=== PATIENT | male | born 1945 | race Caucasian/White ===

== ENCOUNTER 2017-11-20 11:30 | Outpatient (CLI) | payer OTHER | END 2017-11-20 11:36 | disposition home or self-care (01) | LOC: RAD 11:30 | DX: M25.512 Pain in left shoulder (principal) ==

== ENCOUNTER → 2018-03-25 | Outpatient (CLI) | payer OTHER ==
[~2018-03-25] MED LIST: IRON236 MG PO; LISINOPRIL10 MG PO; METFORMIN HCL500 MG PO; SIMVASTATIN40 MG PO
== END | disposition home or self-care (01) ==
LOC: NUCLEAR 03-19 08:30
DX: D49.0 Neoplasm of unspecified behavior of digestive system (principal); R91.1 Solitary pulmonary nodule
CPT/HCPCS: 78815; A9552

== ENCOUNTER 2018-04-03 14:38 | Inpatient (IN) | payer OTHER ==
[~2018-04-03] VITALS: Ht 167.6 cm; Wt 81.6 kg
[2018-04-03] MEDS ORDERED: LISINOPRIL10 MG PO (15:30)
[2018-04-03] MEDS ORDERED: IRON236 MG PO (15:30)
[2018-04-03] MEDS ORDERED: SIMVASTATIN40 MG PO (15:30)
[2018-04-03] MEDS ORDERED: METFORMIN HCL500 MG PO (15:30)
== END 2018-04-14 16:08 | disposition home or self-care, planned readmission (81) | DRG 330 ==
LOC: O/R 04-08 06:00 → SURG 04-08 11:05 → O/R 04-08 14:37 → SURG 04-14 07:34
PROVIDERS: Surgery
PROC: 07TC4ZZ Resection of Pelvis Lymphatic, Percutaneous Endoscopic Approach (ICD-10-PCS; 2018-04-08)
PROC: 0DTF4ZZ Resection of Right Large Intestine, Percutaneous Endoscopic Approach (ICD-10-PCS; principal; 2018-04-08 11:00)
PROC: 3E0F7GC Introduction of Other Therapeutic Substance into Respiratory Tract, Via Natural or Artificial Opening (ICD-10-PCS; 2018-04-09)
DX: C18.2 Malignant neoplasm of ascending colon (principal); J95.89 Other postprocedural complications and disorders of respiratory system, not elsewhere classified; J98.11 Atelectasis; R59.0 Localized enlarged lymph nodes; D12.2 Benign neoplasm of ascending colon; R06.02 Shortness of breath

== ENCOUNTER 2018-04-07 08:09 | Day surgery (SDC) | payer OTHER | END 2018-04-07 11:50 | disposition home or self-care, planned readmission (81) | LOC: AMB-ENDOS 08:09 | DX: D12.2 Benign neoplasm of ascending colon (principal) ==

== ENCOUNTER 2019-03-31 12:12 | Outpatient (CLI) | payer OTHER | END 2019-03-31 15:50 | disposition home or self-care (01) | LOC: LAB 12:12 | DX: N20.0 Calculus of kidney (principal) ==

== ENCOUNTER 2019-04-14 07:37 | Outpatient (CLI) | payer OTHER | END 2019-04-14 07:45 | disposition home or self-care (01) | LOC: TOM 07:37 | DX: C18.2 Malignant neoplasm of ascending colon (principal) | CPT/HCPCS: 71260; 74177; Q9965 ==

== ENCOUNTER 2019-04-27 08:17 | Day surgery (SDC) | payer OTHER | END 2019-04-27 12:00 | disposition home or self-care (01) | LOC: AMB-ENDOS 08:17 | DX: D12.3 Benign neoplasm of transverse colon (principal) ==

== ENCOUNTER 2019-09-08 09:42 | Outpatient (CLI) | payer OTHER | END 2019-09-08 15:00 | disposition home or self-care (01) | LOC: LAB 09:42 | DX: I11.9 Hypertensive heart disease without heart failure (principal); E11.9 Type 2 diabetes mellitus without complications; E78.49 Other hyperlipidemia ==

== ENCOUNTER 2019-09-09 09:04 | Outpatient (CLI) | payer OTHER | END 2019-09-09 15:00 | disposition home or self-care (01) | LOC: LAB 09:04 | DX: I11.9 Hypertensive heart disease without heart failure (principal); E11.9 Type 2 diabetes mellitus without complications; E78.49 Other hyperlipidemia ==

== ENCOUNTER → 2020-04-28 09:52 | Outpatient (CLI) | payer OTHER | END | disposition home or self-care (01) | LOC: LAB 09:52 | PROVIDERS: ATTEND Radiology Diagnostic Radiology | DX: N20.0 Calculus of kidney (principal) ==

== ENCOUNTER 2020-05-06 09:14 | Outpatient (CLI) | payer OTHER | END 2020-05-06 09:22 | disposition home or self-care (01) | LOC: TOM 09:14 → EDBD 09:15 → TOM 09:15 | PROVIDERS: ATTEND Internal Medicine | DX: C18.2 Malignant neoplasm of ascending colon (principal) | CPT/HCPCS: 71260; 74177; Q9965 ==

== ENCOUNTER 2021-01-02 09:24 | Outpatient (CLI) | payer OTHER | END 2021-01-02 09:33 | disposition home or self-care (01) | LOC: LAB 09:24 → RAD 09:24 → LAB 09:33 | DX: I11.9 Hypertensive heart disease without heart failure (principal); R97.0 Elevated carcinoembryonic antigen [CEA]; D12.6 Benign neoplasm of colon, unspecified; E11.65 Type 2 diabetes mellitus with hyperglycemia; E11.69 Type 2 diabetes mellitus with other specified complication; D50.8 Other iron deficiency anemias; N40.1 Benign prostatic hyperplasia with lower urinary tract symptoms; Z12.11 Encounter for screening for malignant neoplasm of colon; Z12.5 Encounter for screening for malignant neoplasm of prostate ==

== ENCOUNTER 2021-01-04 09:51 | Outpatient (CLI) | payer OTHER | END 2021-01-04 09:56 | disposition home or self-care (01) | LOC: LAB 09:51 | DX: N40.1 Benign prostatic hyperplasia with lower urinary tract symptoms (principal); Z12.11 Encounter for screening for malignant neoplasm of colon; Z12.5 Encounter for screening for malignant neoplasm of prostate; D50.8 Other iron deficiency anemias; E11.69 Type 2 diabetes mellitus with other specified complication; E11.65 Type 2 diabetes mellitus with hyperglycemia; D12.6 Benign neoplasm of colon, unspecified; R97.0 Elevated carcinoembryonic antigen [CEA] ==

== ENCOUNTER 2021-02-06 09:29 | Outpatient (CLI) | payer OTHER | END 2021-02-06 09:40 | disposition home or self-care (01) | LOC: TOM 09:29 | DX: R97.0 Elevated carcinoembryonic antigen [CEA] (principal); Z85.038 Personal history of other malignant neoplasm of large intestine ==

== ENCOUNTER 2021-10-04 15:26 | Outpatient (CLI) | payer OTHER | END 2021-10-04 18:00 | disposition home or self-care (01) | LOC: EKG 15:26 | DX: I10 Essential (primary) hypertension (principal) ==

== ENCOUNTER 2022-03-01 09:15 | Outpatient (CLI) | payer OTHER | END 2022-03-01 09:31 | disposition home or self-care (01) | LOC: LAB 09:15 | DX: E11.69 Type 2 diabetes mellitus with other specified complication (principal); E11.65 Type 2 diabetes mellitus with hyperglycemia; D50.9 Iron deficiency anemia, unspecified; N40.1 Benign prostatic hyperplasia with lower urinary tract symptoms; N13.8 Other obstructive and reflux uropathy; Z85.038 Personal history of other malignant neoplasm of large intestine; R97.0 Elevated carcinoembryonic antigen [CEA]; I11.9 Hypertensive heart disease without heart failure ==

== ENCOUNTER → 2022-03-06 09:38 | Outpatient (CLI) | payer OTHER | END | disposition home or self-care (01) | LOC: LAB 09:38 | DX: E11.69 Type 2 diabetes mellitus with other specified complication (principal); E11.65 Type 2 diabetes mellitus with hyperglycemia; R97.0 Elevated carcinoembryonic antigen [CEA]; I11.9 Hypertensive heart disease without heart failure; D50.9 Iron deficiency anemia, unspecified; N40.1 Benign prostatic hyperplasia with lower urinary tract symptoms; N13.8 Other obstructive and reflux uropathy; Z85.038 Personal history of other malignant neoplasm of large intestine ==

== ENCOUNTER 2022-04-02 10:21 | Outpatient (CLI) | payer OTHER | END 2022-04-02 10:23 | disposition home or self-care (01) | LOC: TOM 10:21 | PROVIDERS: ATTEND Internal Medicine | DX: C18.2 Malignant neoplasm of ascending colon (principal) | CPT/HCPCS: 71270; Q9965 ==

== ENCOUNTER 2022-09-10 10:17 | Outpatient (CLI) | payer OTHER | END 2022-09-10 10:31 | disposition home or self-care (01) | LOC: LAB 10:17 | DX: Z12.5 Encounter for screening for malignant neoplasm of prostate (principal); I13.0 Hypertensive heart and chronic kidney disease with heart failure and stage 1 through stage 4 chronic kidney disease, or unspecified chronic kidney disease; Z13.29 Encounter for screening for other suspected endocrine disorder; E55.9 Vitamin D deficiency, unspecified; E78.5 Hyperlipidemia, unspecified ==

== ENCOUNTER 2023-06-03 08:04 | Outpatient (CLI) | payer OTHER | END 2023-06-03 08:08 | disposition home or self-care (01) | LOC: TOM 08:04 | DX: C18.2 Malignant neoplasm of ascending colon (principal) | CPT/HCPCS: 71270; 74178; Q9965 ==

== ENCOUNTER 2024-05-12 08:31 | Outpatient (CLI) | payer OTHER ==
[2024-05-12 09:44] LABS: HEMATOCRIT 34.2 % (39.0-48.0); HEMOGLOBIN 12.2 g/dL (13-16.00); MEAN CELL VOLUME 90.2 fL (80.0-100.00); MEAN CORPUSCULAR HEMOGLOBIN 32.1 pg (27.00-32.0); MEAN CORPUSCULAR HGB CONC 35.6 g/dl (32.0-36.0); PLATELET COUNT 200 K/uL (150-450); RED BLOOD COUNT 3.79 M/uL (4.00-6.00)
[2024-05-12 09:46] LABS: PH,URINE 5.5 (5.0-8.0); URINE APPEARANCE Clear; URINE BILIRRUBIN Negative (NEGATIVE); URINE BLOOD Trace; URINE COLOR Yellow; URINE GLUCOSE Negative (NEGATIVE); URINE KETONE Negative (NEGATIVE); URINE LEUKOCYTE Negative; URINE NITRATE Negative; URINE PROTEIN Negative (NEGATIVE); URINE UROBILINOGEN 0.2 E.U./dl
[2024-05-12 09:51] LABS: URINE BACTERIA 7.5 uL (0.0-1933); URINE RBC 12.2 uL (0.0-20.8)
[2024-05-12 09:59] LABS: URINE EPITHELIAL CELLS 0.4 uL (0.0-38.8); URINE WBC 0.5 uL (0.0-23.2)
[2024-05-12 10:43] LABS: ALBUMIN 3.7 gm/dL (3.4-5.0); CALCIUM 8.9 mg/dL (8.5-10.1); CHOL HDL RATIO 2.3 (0-5.0); CREATININE SERUM 1.3 mg/dL (0.70-1.30); GFR 53.53; PHOSPHOROUS 3.9 mg/dL (2.5-4.9); POTASSIUM 4.56 mEq/L (3.5-5.1); URIC ACID 8.4 mg/dL (3.5-8.5)
== END 2024-05-12 08:37 | disposition home or self-care (01) ==
LOC: LAB 08:31
PROVIDERS: ATTEND Internal Medicine Nephrology
DX: D64.9 Anemia, unspecified (principal); I10 Essential (primary) hypertension; E78.2 Mixed hyperlipidemia; R80.8 Other proteinuria; E11.21 Type 2 diabetes mellitus with diabetic nephropathy; E79.0 Hyperuricemia without signs of inflammatory arthritis and tophaceous disease; R31.1 Benign essential microscopic hematuria

== ENCOUNTER → 2024-07-16 07:44 | Outpatient (CLI) | payer OTHER ==
[2024-07-16 08:44] LABS: HEMATOCRIT 33.4 % (39.0-48.0); HEMOGLOBIN 11.9 g/dL (13-16.00); MEAN CELL VOLUME 89.5 fL (80.0-100.00); MEAN CORPUSCULAR HGB CONC 35.8 g/dl (32.0-36.0); PLATELET COUNT 191 K/uL (150-450); RED BLOOD COUNT 3.73 M/uL (4.00-6.00); RED CELL DISTRIBUTION WIDTH 13.9 % (11.5-14.5)
[2024-07-16 09:09] LABS: ALBUMIN 3.7 gm/dL (3.4-5.0); BILIRUBIN TOTAL 0.56 mg/dL (0.3-1.2); CALCIUM 9.2 mg/dL (8.5-10.1); CREATININE SERUM 1.4 mg/dL (0.70-1.30); GFR 49.14; GLOBULINA 3.7 G/DL (2.4-3.5); POTASSIUM 4.8 mEq/L (3.5-5.1); TOTAL PROTEIN 7.4 gm/dL (6.4-8.2)
== END | disposition home or self-care (01) ==
LOC: LAB 07:44
PROVIDERS: ATTEND Internal Medicine
DX: C18.2 Malignant neoplasm of ascending colon (principal)

== ENCOUNTER 2024-08-03 08:37 | Outpatient (CLI) | payer OTHER | END 2024-08-03 08:46 | disposition home or self-care (01) | LOC: TOM 08:37 | PROVIDERS: ATTEND Internal Medicine | DX: C18.2 Malignant neoplasm of ascending colon (principal) ==

== ENCOUNTER → 2024-11-10 07:52 | Outpatient (CLI) | payer OTHER ==
[2024-11-10 08:41] LABS: PH,URINE 6.5 (5.0-8.0); URINE APPEARANCE Clear; URINE BILIRRUBIN Negative (NEGATIVE); URINE BLOOD Negative; URINE COLOR Yellow; URINE GLUCOSE Negative (NEGATIVE); URINE KETONE Negative (NEGATIVE); URINE LEUKOCYTE Negative; URINE NITRATE Negative; URINE PROTEIN 30 (NEGATIVE); URINE UROBILINOGEN 0.2 E.U./dl
[2024-11-10 08:47] LABS: HEMATOCRIT 35.9 % (39.0-48.0); HEMOGLOBIN 12.5 g/dL (13-16.00); MEAN CORPUSCULAR HEMOGLOBIN 31.4 pg (27.00-32.0); MEAN CORPUSCULAR HGB CONC 34.9 g/dl (32.0-36.0); PLATELET COUNT 213 K/uL (150-450); RED BLOOD COUNT 3.99 M/uL (4.00-6.00)
[2024-11-10 08:58] LABS: URINE BACTERIA 3.6 uL (0.0-1933); URINE CAST 0.73 uL (0.0-1.40); URINE EPITHELIAL CELLS 0.4 uL (0.0-38.8); URINE WBC 0.9 uL (0.0-23.2)
[2024-11-10 09:17] LABS: ALBUMIN 3.9 gm/dL (3.4-5.0); CALCIUM 9.2 mg/dL (8.5-10.1); CHOL HDL RATIO 2.7 (0-5.0); CREATININE SERUM 1.56 mg/dL (0.70-1.30); GFR 43.37; PHOSPHOROUS 3.7 mg/dL (2.5-4.9); POTASSIUM 4.69 mEq/L (3.5-5.1)
== END | disposition home or self-care (01) ==
LOC: RAD 07:52 → LAB 07:52
PROVIDERS: ATTEND Internal Medicine Nephrology
DX: D64.9 Anemia, unspecified (principal); I10 Essential (primary) hypertension; E78.2 Mixed hyperlipidemia; R80.8 Other proteinuria; R31.1 Benign essential microscopic hematuria; E11.21 Type 2 diabetes mellitus with diabetic nephropathy; E79.0 Hyperuricemia without signs of inflammatory arthritis and tophaceous disease

== ENCOUNTER → 2024-11-17 06:55 | Outpatient (CLI) | payer OTHER ==
[2024-11-17 08:00] LABS: HEMATOCRIT 35.5 % (39.0-48.0); HEMOGLOBIN 12.5 g/dL (13-16.00); MEAN CELL VOLUME 90.1 fL (80.0-100.00); MEAN CORPUSCULAR HEMOGLOBIN 31.7 pg (27.00-32.0); MEAN CORPUSCULAR HGB CONC 35.2 g/dl (32.0-36.0); PLATELET COUNT 218 K/uL (150-450); RED BLOOD COUNT 3.94 M/uL (4.00-6.00); RED CELL DISTRIBUTION WIDTH 13.8 % (11.5-14.5)
[2024-11-17 08:01] LABS: PH,URINE 7.5 (5.0-8.0); URINE APPEARANCE Clear; URINE BILIRRUBIN Negative (NEGATIVE); URINE BLOOD Negative; URINE COLOR Yellow; URINE GLUCOSE Negative (NEGATIVE); URINE KETONE Negative (NEGATIVE); URINE LEUKOCYTE Negative; URINE NITRATE Negative; URINE PROTEIN Negative (NEGATIVE); URINE UROBILINOGEN 0.2 E.U./dl
[2024-11-17 08:09] LABS: URINE BACTERIA 9.7 uL (0.0-1933); URINE EPITHELIAL CELLS 1.4 uL (0.0-38.8); URINE RBC 13.3 uL (0.0-20.8)
[2024-11-17 08:12] LABS: URINE WBC 0.4 uL (0.0-23.2)
[2024-11-17 09:05] LABS: ALBUMIN 3.7 gm/dL (3.4-5.0); BILIRUBIN TOTAL 0.44 mg/dL (0.3-1.2); CALCIUM 9.2 mg/dL (8.5-10.1); CHOL HDL RATIO 3.2 (0-5.0); CREATININE SERUM 1.38 mg/dL (0.70-1.30); GFR 49.96; GLOBULINA 3.9 G/DL (2.4-3.5); POTASSIUM 4.31 mEq/L (3.5-5.1); T4 FREE 0.94 NG/ML (0.76-1.46); TOTAL PROTEIN 7.6 gm/dL (6.4-8.2); TSH 2.56 uIU/mL (0.358-3.74)
== END | disposition home or self-care (01) ==
LOC: LAB 06:55
DX: E03.9 Hypothyroidism, unspecified (principal); E78.49 Other hyperlipidemia; E11.65 Type 2 diabetes mellitus with hyperglycemia; I11.9 Hypertensive heart disease without heart failure; E11.22 Type 2 diabetes mellitus with diabetic chronic kidney disease; Z12.5 Encounter for screening for malignant neoplasm of prostate

== ENCOUNTER 2025-02-15 08:21 | Outpatient (CLI) | payer OTHER ==
[2025-02-16 09:11] LABS: % FREE PSA 11.8 % (.)
== END 2025-02-15 08:23 | disposition home or self-care (01) ==
LOC: LAB 08:21
DX: N40.1 Benign prostatic hyperplasia with lower urinary tract symptoms (principal)

== ENCOUNTER → 2025-07-05 09:10 | Outpatient (CLI) | payer OTHER ==
[2025-07-05 11:02] LABS: URINE APPEARANCE Clear; URINE BILIRRUBIN Negative (NEGATIVE); URINE BLOOD Negative; URINE COLOR Yellow; URINE GLUCOSE Negative (NEGATIVE); URINE KETONE Negative (NEGATIVE); URINE LEUKOCYTE Negative; URINE NITRATE Negative; URINE PROTEIN Negative (NEGATIVE); URINE UROBILINOGEN 0.2 E.U./dl
[2025-07-05 11:06] LABS: URINE RBC 10.2 uL (0.0-20.8)
[2025-07-05 11:07] LABS: URINE BACTERIA 2.3 uL (0.0-1933); URINE CAST 0.00 uL (0.0-1.40); URINE EPITHELIAL CELLS 0.1 uL (0.0-38.8); URINE WBC 0.1 uL (0.0-23.2)
== END | disposition home or self-care (01) ==
LOC: LAB 09:10
PROVIDERS: ATTEND Urology
DX: N40.1 Benign prostatic hyperplasia with lower urinary tract symptoms (principal); N39.0 Urinary tract infection, site not specified